=== PATIENT | male | born 1945 | race Caucasian/White ===

== ENCOUNTER 2024-11-10 08:30 | Inpatient (IN) | payer OTHER ==
[~2024-11-10] VITALS: Ht 167.6 cm; Wt 87.0 kg
[2024-11-10] VITALS (14 sets, daily range): BP systolic 128–166; BP diastolic 79–97; PULSE 83–108; RESP 13–20; TEMP 97.7–98.6; O2SAT 95–99
[2024-11-10] MEDS: IODIXANOL 320MG/ML 100ML BTL IV ONE ×2 (10:19→12:03)
[2024-11-10] MEDS: HEPARIN IN NS 1000Units/500mL 1,500 ML ONE (10:19)
[2024-11-10] MEDS: HEPARIN SODIUM (PORCINE) 5000 UNITS/ML 1ML VIAL ONE ×3 (10:34→10:49)
[2024-11-10] MEDS: ANGIOMAX 250 MG VIAL IV ONE ×4 (10:34→12:47)
[2024-11-10] MEDS: VERAPAMIL 2.5MG/ML INJ 2ML VIAL IV ONE (10:34)
[2024-11-10] MEDS: fentaNYL CITRATE 100 MCG/2 ML VL ONE ×2 (10:35→12:29)
[2024-11-10] MEDS: SODIUM CHL 0.9% 50 ML ONE ×4 (10:35→12:47)
[2024-11-10] MEDS: MIDAZOLAM HCL 2MG/2ML 2ml VIAL (1mg/ml) ONE ×3 (10:35→12:30)
[2024-11-10] MEDS: LIDOCAINE 2%HCL (LOCAL ANESTH.) INJ 10ml MDV ONE (10:36)
[2024-11-10] MEDS: ATROPINE SULF 1 MG/10ml SYR ONE (11:20)
[2024-11-10] MEDS: hydrALAZINE HCL 20 MG/ML VL ONE (11:42)
[2024-11-10] MEDS: niCARdipine 25 MG/10 ML VIAL IV ONE (12:35)
[2024-11-10] MEDS: ONDANSETRON HCL 4 MG/2 ML VIAL ONE ×2 (12:55→13:14)
[2024-11-10] MEDS: TICAGRELOR 90 MG TAB ONE (13:26)
[2024-11-10] MEDS ORDERED: NITROGLYCERIN 0.4 MG SL TAB SL PRN (14:45)
[2024-11-10] MEDS ORDERED: MORPHINE SULFATE INJ 2 MG/ml SYRG IV PRN (14:45)
--- NOTE | 2024-11-10 15:12 | DVHOP2 ---
Operative Report - 2 Report Details Date: 11/10/24 Preop Diagnosis: Coronary artery disease Postop Diagnosis: Successful PTCA and stenting orbital atherectomy of RCA. Surgeon: Argentina Villalta MD Anesthesiologist: Local anesthesia Anesthesia: Mac, Local Consent: The patient was informed of the risks and benefits of the procedure. These include but are not limited to complications of anesthesia, postoperative infection, incomplete relief of symptoms, recurrence of symptoms, damage to blood vessels, nerves and tendons, deep venous thrombosis, pulmonary embolism and possible need for repeat surgery in the future. Complications: No complications Estimated Blood Loss: 15 cc Findings: Severe CAD Indications for Surgery: Chest pain Name of Procedure Performed Bilateral cine coronary angiography, left ventriculography, PTCA and stenting of the RCA. Orbital atherectomy of the RCA. Procedure Details Procedure Details: Prior local anesthesia with 2% lidocaine to the right wrist and full informed consent obtained patient was prepped and draped in usual fashion followed by placement of a six Prydein[place] sheath into the radial artery through which a Robin catheter was used for ventriculography cannulation of both right and left coronary ostia complications Hemodynamics: aortic blood pressure was 130/70. End-diastolic pressure was 12 without a gradient across the aortic valve AV pullback Coronary anatomy: The RCA is a large vessel has a 99% stenosis the significant amount of calcium in the mid RCA with an eccentric lesion. There was a 90% stenosis at the distal RCA prior to the PDA and a 99% stenosis of the RCA just after the origin of the PDA. Left main is large and normal. Left anterior descending goes 2-3 lesions in the proximal and mid section constituting 15-20% lesions as noted. No significant stenosis noted. Diagonals are free of significant disease. Circumflex is a large vessel with two marginals free of significant disease. Ventriculography in the PINON projection shows an EF of 50%. Angioplasty was performed for which a three five guide was placed into the RCA. We were able to place a Specter wire across the stenosis but we could not pass balloons. We then used a Viper wire in place the into the PDA since we could not pass the lesion distal RCA. We then took a 1.25 bur from [facility] orbital atherectomy device and made several wounds in the proximal and distal segments. We were able to open the significantly calcified lesion in the RCA was a no r eflow phenomena into the PDA. We then retracted the wire and placed a tele port catheter to exchange wires and placed a Prolia three wire into the distal RCA. We then placed a Viper wire and also performed orbital atherectomy with several runs at the distal RCA. We then pre-dilated with a two five balloon and placed a three 0 x 12 mm stent just distal to the RCA PDA. Proximal to that we placed a 3-0 by 12 stent and in the midportion we placed a three five by 15 mm stent successfully. We noticed a dissection distal to the distal RCA stent prior to the PDA which required a Guidezilla to place the stent successfully. This was a 3-0 by eight jailing the PDA. Because of the no reflow phenomena we also gave the proximally 800 mcg of nicardipine and 400 mcg of intracoronary nitroglycerin. There was notable improvement in flow. Impression: successful PTCA and stenting of the RCA with orbital atherectomy of the RCA at its proximal distal segments. Recommendations: We will continue with dual antiplatelet therapy lipid-lowering therapy and blood pressure medications. We will keep patient in-house for 24 hours Condition Good Disposition Still a Patient Date of Service: Nov 10, 2024 Billing Provider: ARGENTINA VILLALTA Sr., MD Cardiology Common Codes: 83619-NWSKPRB INP/OBS CARE (High) Cardiology Procedure Codes: 02679-C/R & L HEART CATH FOR LVG ARGENTINA VILLALTA Sr., MD Nov 10, 2024 15:12
[2024-11-10] MEDS: METOCLOPRAMIDE HCL 5MG/ml INJ 2ml VIAL ONE (17:15)
[2024-11-10] MEDS: ACETAMINOPHEN 325 MG TAB PO PRN (17:30)
--- NOTE | 2024-11-10 17:40 | ECG ---
[facility] Test Date: 2024-11-10 Test Time: 17:27:38 Pat Name: JEREMIE CLEARY Department: Room: 0284T Gender: M Therapeutic Mentor: ANGEL : 1945 Requested By: ARGENTINA ROSA Order Number: [id number] Reading MD: Leif Ruiz Measurements Intervals [place] Rate: 82 P: 34 CO: 182 QRS: -25 QRSD: 86 T: 47 QT: 352 QTc: 411 Interpretive Statements Sinus rhythm with sinus arrhythmia with premature ventricular complexes or fusion complexes ST elevations in inferior leads, consider acute versus recent infarct Q waves in inferior leads Electronically Signed On 11-11-2024 8:15:30 PST by Leif Ruiz Please click the below link to view image of tracing.
[2024-11-10] MEDS: METOCLOPRAMIDE HCL 5MG/ml INJ 2ml VIAL IV ONE (17:45)
[2024-11-10] MEDS: TICAGRELOR 90 MG TAB PO SCH (21:46)
[2024-11-11] VITALS (7 sets, daily range): BP systolic 116–146; BP diastolic 62–86; PULSE 85–103; RESP 16–20; TEMP 36.7; O2SAT 95–98
--- NOTE | 2024-11-11 09:20 | DVHPN2 ---
Consult Progress Note Date Seen: Nov 11, 2024 Subjective Patient reports: Feels better Review of Systems: HEENT:Normal, CVS:Normal, RESPIRATORY:Normal, GI:Normal, :Normal, MSK:Normal, NEURO:Normal Objective vital signs Vital Sign Date Time Temp Pulse Resp B/P (MAP) Pulse Ox O2 Delivery O2 Flow Rate FiO2 11/11/24 05:00 98.0 94 18 146/86 (106) 95 98.0 11/10/24 20:00 Room Air* 0 21 Total Intake and Output 11/10/24 11/10/24 11/11/24 15:00 23:00 07:00 Intake Total 150 ml Balance 150 ml medications Current Medications Medications Dose Ordered Sig/Eliel Route Start Time Stop Time Status Last Admin Dose Admin Nitroglycerin 0.4 mg Q5MINP PRN SL 11/10/24 14:45 Morphine Sulfate 2 mg Q30M PRN IV 11/10/24 14:45 Ticagrelor 90 mg BID PO 11/10/24 22:00 11/10/24 21:46 90 MG Aspirin 81 mg DAILY PO 11/11/24 10:00 Acetaminophen 650 mg Q4HP PRN PO 11/10/24 16:45 11/10/24 17:30 650 MG Examination: GENERAL:Normal, HEENT:Normal, NECK:Normal, LUNGS:Normal, CVS:Normal, ABDOMEN:Normal, MSK:Normal, SKIN:Normal (Right wrist appears to be stable. No ecchymosis or hematoma), NEURO:Normal, :Normal Problem List/Assessment/Plan Problem List/Assessment/Plan Status post angioplasty orbital atherectomy and stenting of RCA. Severe no reflow phenomenon ameliorated by the use of nicardipine and intracoronary nitroglycerin. Patient is stable with reestablished flow to PDA and posterolateral branches. Currently asymptomatic. Recommendations continue dual antiplatelet therapy. We will obtain CBC and CMP and an EKG prior to discharge. We will follow up as an outpatient next week Plan discussed with: Patient, Spouse Date of Service: Nov 11, 2024 Billing Provider: ARGENTINA ROSA Sr., MD Cardiology Common Codes: 12602-ANZUMBMBZQ HOSP CARE(High ARGENTINA ROSA Sr., MD Nov 11, 2024 09:20
[2024-11-11] MEDS: ASPirin 81 mg TAB PO SCH (09:57)
[2024-11-11 10:35] LABS: Basophils # (auto) 0 10 ^3/uL (0-0.2); Basophils % (auto) 0.1 % (0.0-2.0); Eosinophils # (auto) 0 10 ^3/uL (0-0.8); Eosinophils % (auto) 0.2 % (0.0-7.0); Hematocrit 37.2 % (41.0-53.0); Hemoglobin 12.3 g/dL (13.5-17.5); Lymphocytes % (auto) 10.5 % (10.0-50.0); Mean Corpuscular Hemoglobin 29.4 pg (28.0-32.0); Monocytes # (auto) 1.1 10 ^3/uL (0-1.3); Monocytes % (auto) 11.4 % (0.0-12.0); Neutrophils # (auto) 7.7 10 ^3/uL (1.6-8.6); Neutrophils % (auto) 77.8 % (37.0-80.0); Platelet Count (auto) 184 10^3/uL (140-450); Red Blood Cells 4.18 10^6/uL (4.5-5.90); Red Cell Distribution Width 16.7 % (11.8-14.3); White Blood Cell 9.9 10^3/uL (4.4-10.8)
[2024-11-11 10:57] LABS: Alanine Aminotransferase 39 U/L (7-40); Alkaline Phosphatase 82 U/L (46-116); Anion Gap 10 (5-15); Blood Urea Nitrogen 14 mg/dL (9-23); Calcium 10.2 mg/dL (8.7-10.4); Carbon Dioxide 24 mmol/L (20-31); Chloride 105 mmol/L (98-107); Sodium 139 mmol/L (136-145); Total Protein 7.2 g/dL (5.7-8.2)
[2024-11-11 11:04] LABS: BUN/Creatinine Ratio 10.4 (10.0-20.0)
[2024-11-11 11:09] LABS: Albumin 4.9 g/dL (3.2-4.8); Aspartate Aminotransferase 161 U/L (13-40); Bilirubin, Total 1.5 mg/dL (0.2-1.0); Glucose 142 mg/dL (74-106)
[2024-11-11] MEDS ORDERED: TICA90TA PO (16:53)
[2024-11-11] MEDS ORDERED: ATOR20TA50 PO (16:53)
[2024-11-11] MEDS ORDERED: ASPI81TA28 PO (16:53)
--- NOTE | 2024-11-11 16:56 | DVHINCON2 ---
Date of service: Nov 10, 2024 Reason for Consultation Postop medical management while in the hospital History of Present Illness Patient is here for coronary artery disease and underwent elective coronary angiogram by Dr. Villalta. Patient had a coronary artery stent placement and started on dual antiplatelet therapy and admitted overnight for observation. Currently patient is stable. No complaints. Past Medical History Atherosclerotic coronary artery disease Past Surgical History None significant noted Family History: Patient reports no known family medical history. Allergies: Uncoded Allergies: NONE (Allergy, Unknown, 11/08/24) Home Meds Active Scripts Atorvastatin Calcium (ATORVASTATIN CALCIUM) 20 Mg Tab, 1 TAB PO DAILY, #30 TAB Prov:DARBY IVERSON MD 11/11/24 Aspirin (Aspirin Ec) 81 Mg Tab, 81 MG PO DAILY, #120 TAB 1 Refill Prov:DARBY IVERSON MD 11/11/24 Ticagrelor Base (BRILINTA) 90 Mg Tab, 90 MG PO BID, #120 TAB 1 Refill Prov:DARBY IVERSON MD 11/11/24 Current Medications Current Medications Medications (Trade) Dose Ordered Sig/Eliel Route PRN Reason Start Time Stop Time Status Last Admin Ticagrelor (Brilinta) 90 mg BID PO 11/10/24 22:00 11/11/24 09:57 Aspirin 81 mg DAILY PO 11/11/24 10:00 11/11/24 09:57 Review of Systems Denies any chest pain or shortness for breath. No headache dizziness or lightheadedness. Other review of systems reviewed normal. Vital Signs Vital Signs Date Time Temp Pulse Resp B/P (MAP) Pulse Ox O2 Delivery O2 Flow Rate FiO2 11/11/24 16:53 98.0 88 20 116/62 (80) 96 98.0 11/11/24 08:00 Room Air* 0 21 Labs/Diagnostic Data Operative Report - 2 Report Details Date: 11/10/24 Preop Diagnosis: Coronary artery disease Postop Diagnosis: Successful PTCA and stenting orbital atherectomy of RCA. Surgeon: Argentina Villalta MD Anesthesiologist: Local anesthesia Anesthesia: Mac, Local Consent: The patient was informed of the risks and benefits of the procedure. These include but are not limited to complications of anesthesia, postoperative infection, incomplete relief of symptoms, recurrence of symptoms, damage to blood vessels, nerves and tendons, deep venous thrombosis, pulmonary embolism and possible need for repeat surgery in the future. Complications: No complications Estimated Blood Loss: 15 cc Findings: Severe CAD Indications for Surgery: Chest pain Name of Procedure Performed Bilateral cine coronary angiography, left ventriculography, PTCA and stenting of the RCA. Orbital atherectomy of the RCA. Procedure Details Procedure Details: Prior local anesthesia with 2% lidocaine to the right wrist and full informed consent obtained patient was prepped and draped in usual fashion followed by placement of a six [place] sheath into the radial artery through which a Robin catheter was used for ventriculography cannulation of both right and left coronary ostia complications Hemodynamics: aortic blood pressure was 130/70. End-diastolic pressure was 12 without a gradient across the aortic valve AV pullback Coronary anatomy: The RCA is a large vessel has a 99% stenosis the significant amount of calcium in the mid RCA with an eccentric lesion. There was a 90% stenosis at the distal RCA prior to the PDA and a 99% stenosis of the RCA just after the origin of the PDA. Left main is large and normal. Left anterior descending goes 2-3 lesions in the proximal and mid section constituting 15-20% lesions as noted. No significant stenosis noted. Diagonals are free of significant disease. Circumflex is a large vessel with two marginals free of significant disease. Ventriculography in the PINON projection shows an EF of 50%. Angioplasty was performed for which a three five guide was placed into the RCA. We were able to place a Specter wire across the stenosis but we could not pass balloons. We then used a Viper wire in place the into the PDA since we could not pass the lesion distal RCA. We then took a 1.25 bur from [facility] orbital atherectomy device and made several wounds in the proximal and distal segments. We were able to open the significantly calcified lesion in the RCA was a no reflow phenomena into the PDA. We then retracted the wire and placed a tele port catheter to exchange wires and placed a Prolia three wire into the distal RCA. We then placed a Viper wire and also performed orbital atherectomy with several runs at the distal RCA. We then pre-dilated with a two five balloon and placed a three 0 x 12 mm stent just distal to the RCA PDA. Proximal to that we placed a 3-0 by 12 stent and in the midportion we placed a three five by 15 mm stent successfully. We noticed a dissection distal to the distal RCA stent prior to the PDA which required a Guidezilla to place the stent successfully. This was a 3-0 by eight jailing the PDA. Because of the no reflow phenomena we also gave the proximally 800 mcg of nicardipine and 400 mcg of intracoronary nitroglycerin. There was notable improvement in flow. Impression: successful PTCA and stenting of the RCA with orbital atherectomy of the RCA at its proximal distal segments. Recommendations: We will continue with dual antiplatelet therapy lipid-lowering therapy and blood pressure medications. We will keep patient in-house for 24 hours Condition Good Disposition Still a Patient Date of Service: Nov 10, 2024 Billing Provider: ARGENTINA VILLALTA Sr., MD Cardiology Common Codes: 27239-ADOFHAV INP/OBS CARE (High) Cardiology Procedure Codes: 50343-N/R & L HEART CATH FOR LVG ARGENTINA VILLALTA Sr., MD Nov 10, 2024 15:12 DICTATED BY:RAGENTINA VILLALTA Sr., MD DICTATED DATE/TIME:11/10/24 1512 Labs Test 11/11/24 10:06 Range/Units White Blood Count 9.9 4.4-10.8 10^3/uL Red Blood Count 4.18 L 4.5-5.90 10^6/uL Hemoglobin 12.3 L 13.5-17.5 g/dL Hematocrit 37.2 L 41.0-53.0 % Mean Corpuscular Volume 89.0 80.0-100.0 fL Mean Corpuscular Hemoglobin 29.4 28.0-32.0 pg Mean Corpuscular Hemoglobin Concent 33.0 32.0-36.0 g/dL Red Cell Distribution Width 16.7 H 11.8-14.3 % Platelet Count 184 140-450 10^3/uL Mean Platelet Volume 8.2 6.9-10.8 fL Neutrophils (%) (Auto) 77.8 37.0-80.0 % Lymphocytes (%) (Auto) 10.5 10.0-50.0 % Monocytes (%) (Auto) 11.4 0.0-12.0 % Eosinophils (%) (Auto) 0.2 0.0-7.0 % Basophils (%) (Auto) 0.1 0.0-2.0 % Neutrophils # (Auto) 7.7 1.6-8.6 10 ^3/uL Lymphocytes # (Auto) 1.0 0.4-5.4 10 ^3/uL Monocytes # (Auto) 1.1 0-1.3 10 ^3/uL Eosinophils # (Auto) 0 0-0.8 10 ^3/uL Basophils # (Auto) 0 0-0.2 10 ^3/uL Nucleated Red Blood Cells 0.0 % Sodium Level 139 136-145 mmol/L Potassium Level 4.0 3.5-5.1 mmol/L Chloride Level 105 98-107 mmol/L Carbon Dioxide Level 24 20-31 mmol/L Anion Gap 10 5-15 Blood Urea Nitrogen 14 9-23 mg/dL Creatinine 1.35 H 0.700-1.30 mg/dL Glomerular Filtration Rate Calc 54 >90 mL/min BUN/Creatinine Ratio 10.4 10.0-20.0 Serum Glucose 142 H 74-106 mg/dL Calcium Level 10.2 8.7-10.4 mg/dL Total Bilirubin 1.5 H 0.2-1.0 mg/dL Aspartate Amino Transferase (AST) 161 H 13-40 U/L Alanine Aminotransferase (ALT) 39 7-40 U/L Alkaline Phosphatase 82 46-116 U/L Total Protein 7.2 5.7-8.2 g/dL Albumin 4.9 H 3.2-4.8 g/dL Assessment Atherosclerotic coronary artery disease Coronary angiogram with a coronary artery stent placement Please see the detailed operative report from conservation technician. Continue aspirin Brilinta antiplatelet therapy. Continue statin. Patient is clinically stable. He is re-evaluated by conservation technician felt stable to be discharged. Therefore we will place discharge orders. Patient is advised to continue medications as he is prescribed and have a close follow up with the PCP and conservation technician as mentioned. Discussed with the nurse regarding care plan. Plan discussed with: Other DARBY IVERSON MD Nov 11, 2024 16:56
--- NOTE | 2024-11-13 11:38 | ECG ---
[facility] Test Date: 2024-11-11 Test Time: 10:10:07 Pat Name: JEREMIE CLEARY Department: Respiratoy Room: 0284T A Gender: M Senior Tech Manufacturing Engineering: : 1945 Requested By: ARGENTINA ROSA Order Number: [id number] Reading MD: Leif Ruiz Measurements Intervals [place] Rate: 92 P: 20 ID: 162 QRS: -50 QRSD: 96 T: -29 QT: 430 QTc: 533 Interpretive Statements Sinus rhythm Multiple ventricular premature complexes Inferior infarct, recent (no change compared to prior EKGs) Prolonged QT interval Q waves anterior leads Non-specific T wave abnnoramlities Electronically Signed On 11-14-2024 9:50:04 PST by Leif Ruiz Please click the below link to view image of tracing.
--- NOTE | 2024-11-13 11:38 | ECG ---
[facility] Test Date: 2024-11-11 Test Time: 10:09:11 Pat Name: JEREMIE CLEARY Department: Respiratoy Room: 0284T A Gender: M Paper Machine Back Tender: : 1945 Requested By: ARGENTINA ROSA Order Number: [id number] Reading MD: Leif Ruiz Measurements Intervals [place] Rate: 81 P: 36 NM: 155 QRS: -39 QRSD: 107 T: 57 QT: 343 QTc: 398 Interpretive Statements Sinus rhythm Multiform ventricular premature complexes ST elevtions, inferior leads consider recent infarct (no change compared to prior EKG from 11/10/24) Anterior Q waves Electronically Signed On 11-14-2024 9:49:18 PST by Leif Ruiz Please click the below link to view image of tracing.
--- NOTE | 2024-11-13 11:39 | ECG ---
[facility] Test Date: 2024-11-11 Test Time: 14:41:43 Pat Name: JEREMIE CLEARY Department: Respiratoy Room: 0284T A Gender: M Sustainable Agriculture Specialist: CECELIA : 1945 Requested By: ARGENTINA ROSA Order Number: [id number] Reading MD: Leif Ruiz Measurements Intervals [place] Rate: 99 P: 22 CA: 162 QRS: -48 QRSD: 90 T: -14 QT: 372 QTc: 478 Interpretive Statements Sinus tachycardia Multiform ventricular premature complexes Inferior infarct, recent (No change compared to prior EKGs) Anteroseptal infarct, old Electronically Signed On 11-14-2024 9:50:58 PST by Leif Ruiz Please click the below link to view image of tracing.
== END 2024-11-11 17:41 | disposition home or self-care (01) | DRG 321 ==
LOC: CATH 08:30 → TELE 14:45 → TELE-WESTW 18:08
PROVIDERS: ADMIT Internal Medicine; ATTEND Internal Medicine
PROC: 027037Z Dilation of Coronary Artery, One Artery with Four or More Drug-eluting Intraluminal Devices, Percutaneous Approach (ICD-10-PCS; principal; 2024-11-10)
PROC: 02C03Z7 Extirpation of Matter from Coronary Artery, One Artery, Orbital Atherectomy Technique, Percutaneous Approach (ICD-10-PCS; 2024-11-10)
PROC: 4A023N7 Measurement of Cardiac Sampling and Pressure, Left Heart, Percutaneous Approach (ICD-10-PCS; 2024-11-10)
PROC: B211YZZ Fluoroscopy of Multiple Coronary Arteries using Other Contrast (ICD-10-PCS; 2024-11-10)
PROC: B215YZZ Fluoroscopy of Left Heart using Other Contrast (ICD-10-PCS; 2024-11-10)
DX: I25.10 Atherosclerotic heart disease of native coronary artery without angina pectoris (principal); E11.9 Type 2 diabetes mellitus without complications; I10 Essential (primary) hypertension
CPT/HCPCS: 36415; 80053; 85025; 92933; 93005; 93458; 99152; 99153; C1724; C1769; C1887; G0378; J2003; J2250; J2405; Q9967